=== PATIENT | female | born 1925 | race Caucasian/White ===

== ENCOUNTER 2017-05-07 14:14 | Inpatient (IN) | payer MEDICARE, OTHER ==
[~2017-05-07] VITALS: Ht 160 cm; Wt 76.9 kg
[~2017-05-07 14:14] MED LIST: ASPIRIN ADULT L81 M2 PO; AUGMENTIN 875 M1 TAB PO; CIPRODEX 0.3%-7.5 ML OT; CLARITIN10 MG PO; COREG3.125 MG PO; COZAAR50 M1 PO; CYCLOBENZAPRINE10 MG PO; Cyclobenzaprine10 MG MR; DARVOCET N 1001 TAB PO; DAYPRO600 M1 PO; GLIMEPIRIDE4 M1 PO; GLIPIZIDE ER2.5 MG PO; KLOR-CON M1010 ME1 PO; LASIX40 MG PO; LISINOPRIL2.5 MG PO; MEDROL DOSEPAK4 MG PO; MELOXICAM15 MG PO; METFORMIN500 MG PO; METOPROLOL100 MG PO; Motrin,Rufen800 MG PO; NEURONTIN300 MG PO; NORCO 325 MG-51 TAB PO; NORFLEX100 MG PO; PERCOCET 325 MG1 TA2 PO; PREDNICOT10 MG PO; ROBAXIN750 MG PO; SKELAXIN800 MG PO; TRAMADOL HCL50 MG PO; VICODIN 5/500 505 MG PO; VICODIN 500 MG-1 TAB PO
[2017-05-07 14:19] VITALS: BP 192/93
[2017-05-07 15:11] LABS: BASO % 0.3 % (0.0-1.0); EOS # 0.1 10*3/uL (0.0-0.4); EOS % 1.2 % (1.0-4.0); HEMOGLOBIN 10.2 g/dl (12.0-16.0); LYMPH # 1.3 10*3/uL (1.3-4.4); LYMPH % 16.6 % (27.0-41.0); MEAN CELL VOLUME 99.7 fl (81.0-99.0); MEAN CORPUSCULAR HGB 33.9 pg (27.0-31.0); MEAN PLATELET VOLUME 9.8 fl (9.6-12.3); MONO # 0.8 10*3/uL (0.1-1.0); MONO % 9.9 % (3.0-9.0); NEUT # 5.4 10*3/uL (2.3-7.9); NEUT % 70.3 % (47.0-73.0); PLATELET COUNT AUTOMATED 224 10*3/uL (130-400); RED BLOOD COUNT 3.01 10*6/uL (4.10-5.10); RED CELL DISTRI WIDTH 13.1 % (0-14.5); WHITE BLOOD COUNT 7.6 10*3/uL (4.8-10.8)
[2017-05-07 15:13] VITALS: BP 180/90; BP 191/87
[2017-05-07 15:25] LABS: ALBUMIN 3.1 gm/dl (3.1-4.5); ALKALINE PHOSPHATASE 84 U/L (45-117); BUN 13 mg/dl (7-24); CHLORIDE 103 mmol/L (98-107); CREATININE 0.98 mg/dL (0.55-1.02); POTASSIUM 3.5 mmol/L (3.5-5.1); SGOT/AST 9 IU/L (3-35); SGPT/ALT 9 U/L (12-78); SODIUM 139 mmol/L (136-145); TOTAL PROTEIN 7.7 gm/dL (6.4-8.2)
[2017-05-07 16:13] VITALS: BP 174/83
[2017-05-07 16:45] VITALS: BP 161/80
[2017-05-07] MEDS ORDERED: TRAMADOL HCL50 MG PO (16:55)
[2017-05-07 17:00] VITALS: BP 163/79
[2017-05-07 20:00] VITALS: BP 154/68
[2017-05-08] VITALS: BP 143/66
[2017-05-08 07:31] LABS: BASO % 0.4 % (0.0-1.0); EOS # 0.2 10*3/uL (0.0-0.4); EOS % 2.5 % (1.0-4.0); HEMATOCRIT 27.9 % (37.0-47.0); HEMOGLOBIN 9.2 g/dl (12.0-16.0); LYMPH # 1.5 10*3/uL (1.3-4.4); LYMPH % 20.6 % (27.0-41.0); MEAN CELL VOLUME 100.7 fl (81.0-99.0); MEAN CORPUSCULAR HGB 33.2 pg (27.0-31.0); MEAN PLATELET VOLUME 10.2 fl (9.6-12.3); MONO # 0.8 10*3/uL (0.1-1.0); MONO % 10.7 % (3.0-9.0); NEUT # 4.7 10*3/uL (2.3-7.9); NEUT % 64.3 % (47.0-73.0); PLATELET COUNT AUTOMATED 207 10*3/uL (130-400); RED BLOOD COUNT 2.77 10*6/uL (4.10-5.10); RED CELL DISTRI WIDTH 13.1 % (0-14.5); WHITE BLOOD COUNT 7.3 10*3/uL (4.8-10.8)
[2017-05-08 07:34] LABS: CHLORIDE 102 mmol/L (98-107); POTASSIUM 3.4 mmol/L (3.5-5.1); SODIUM 137 mmol/L (136-145)
[2017-05-08 07:55] LABS: ALBUMIN 2.9 gm/dl (3.1-4.5); ALKALINE PHOSPHATASE 81 U/L (45-117); BUN 14 mg/dl (7-24); CREATININE 0.97 mg/dL (0.55-1.02); PHOSPHOROUS 2.4 mg/dL (2.5-4.9); SGOT/AST 10 IU/L (3-35); SGPT/ALT 9 U/L (12-78); TOTAL PROTEIN 7.2 gm/dL (6.4-8.2)
[2017-05-08 08:00] VITALS: BP 174/80
[2017-05-08 12:00] VITALS: BP 157/83
[2017-05-08 16:00] VITALS: BP 168/90
[2017-05-08 20:00] VITALS: BP 170/90
[2017-05-09] VITALS: BP 135/69
[2017-05-09 06:43] LABS: BILIRUBIN 1+ (NEGATIVE); BLOOD NEGATIVE (NEGATIVE); CLARITY CLOUDY (CLEAR); COLOR YELLOW (YELLOW); GLUCOSE NEGATIVE (NEGATIVE); KETONE 1+ (NEGATIVE); LEUKO ESTERASE 1+ (NEGATIVE); NITRITE NEGATIVE (NEGATIVE); PH 8.5 (5.0-9.0)
[2017-05-09 07:27] LABS: BACTERIA 4+; TRIP PHOS CRYSTALS 3+
[2017-05-09 08:00] VITALS: BP 139/64
[2017-05-09 12:00] VITALS: BP 182/90
[2017-05-09 16:00] VITALS: BP 131/60
[2017-05-09 20:00] VITALS: BP 160/90
[2017-05-09 22:00] VITALS: BP 154/82
[2017-05-10] VITALS: BP 118/48
[2017-05-10 06:21] LABS: BASO % 0.2 % (0.0-1.0); EOS # 0.1 10*3/uL (0.0-0.4); EOS % 0.8 % (1.0-4.0); HEMOGLOBIN 8.9 g/dl (12.0-16.0); LYMPH # 1.9 10*3/uL (1.3-4.4); LYMPH % 16.7 % (27.0-41.0); MEAN CELL VOLUME 100.4 fl (81.0-99.0); MEAN CORPUSCULAR HGB 33.1 pg (27.0-31.0); MEAN PLATELET VOLUME 10.3 fl (9.6-12.3); MONO # 0.9 10*3/uL (0.1-1.0); MONO % 7.5 % (3.0-9.0); NEUT # 8.4 10*3/uL (2.3-7.9); NEUT % 72.4 % (47.0-73.0); PLATELET COUNT AUTOMATED 207 10*3/uL (130-400); RED BLOOD COUNT 2.69 10*6/uL (4.10-5.10); RED CELL DISTRI WIDTH 12.9 % (0-14.5); WHITE BLOOD COUNT 11.6 10*3/uL (4.8-10.8)
[2017-05-10 06:43] LABS: ALBUMIN 2.6 gm/dl (3.1-4.5); POTASSIUM 4.1 mmol/L (3.5-5.1)
[2017-05-10 06:46] LABS: CREATININE 1.15 mg/dL (0.55-1.02); TOTAL PROTEIN 6.6 gm/dL (6.4-8.2)
[2017-05-10 08:00] VITALS: BP 131/75
[2017-05-10 12:00] VITALS: BP 124/52
[2017-05-10 16:00] VITALS: BP 150/66
[2017-05-10 20:00] VITALS: BP 146/66
[2017-05-11] VITALS: BP 155/68
[2017-05-11 06:41] LABS: BUN 17 mg/dl (7-24); CHLORIDE 103 mmol/L (98-107); CREATININE 1.02 mg/dL (0.55-1.02); POTASSIUM 4.1 mmol/L (3.5-5.1); SODIUM 137 mmol/L (136-145)
[2017-05-11 08:00] VITALS: BP 176/90
[2017-05-11 12:00] VITALS: BP 138/60
[2017-05-11 16:00] VITALS: BP 149/72
[2017-05-11 20:00] VITALS: BP 151/67
[2017-05-12] VITALS: BP 145/61
[2017-05-12 04:00] VITALS: BP 154/64
[2017-05-12 07:37] LABS: BASO % 0.2 % (0.0-1.0); EOS # 0.2 10*3/uL (0.0-0.4); EOS % 2.1 % (1.0-4.0); HEMATOCRIT 27.1 % (37.0-47.0); HEMOGLOBIN 8.8 g/dl (12.0-16.0); LYMPH # 1.6 10*3/uL (1.3-4.4); LYMPH % 17.5 % (27.0-41.0); MEAN CELL VOLUME 101.9 fl (81.0-99.0); MEAN CORPUSCULAR HGB 33.1 pg (27.0-31.0); MEAN CORPUSCULAR HGB CONC 32.5 g/dl (33.0-37.0); MEAN PLATELET VOLUME 10.3 fl (9.6-12.3); MONO # 0.7 10*3/uL (0.1-1.0); MONO % 7.8 % (3.0-9.0); NEUT # 6.2 10*3/uL (2.3-7.9); NEUT % 69.2 % (47.0-73.0); PLATELET COUNT AUTOMATED 204 10*3/uL (130-400); RED BLOOD COUNT 2.66 10*6/uL (4.10-5.10); RED CELL DISTRI WIDTH 13.1 % (0-14.5)
[2017-05-12 08:00] VITALS: BP 178/80
[2017-05-12 08:12] LABS: BUN 11 mg/dl (7-24); CHLORIDE 105 mmol/L (98-107); POTASSIUM 3.9 mmol/L (3.5-5.1); SODIUM 138 mmol/L (136-145)
[2017-05-12 08:14] LABS: CREATININE 0.88 mg/dL (0.55-1.02)
[2017-05-12 11:57] VITALS: BP 149/68
[2017-05-12] MEDS ORDERED: VITAMIN D-32000 UNI1 PO (12:50)
[2017-05-12] MEDS ORDERED: FEOSOL325 MG PO (12:50)
[2017-05-12] MEDS ORDERED: B12,B-12,B 12500 MC1 PO (12:50)
[2017-05-12 16:00] VITALS: BP 178/67
== END 2017-05-12 16:18 | disposition other institution (70) | DRG 689 ==
LOC: ED 14:14 → EDHOLD 16:24 → 4E 16:24
PROVIDERS: Family Medicine; Internal Medicine; Physician Assistant; ADMIT Internal Medicine
DX: N30.00 Acute cystitis without hematuria (principal); J18.9 Pneumonia, unspecified organism; N17.9 Acute kidney failure, unspecified; I11.0 Hypertensive heart disease with heart failure; E11.65 Type 2 diabetes mellitus with hyperglycemia; D64.9 Anemia, unspecified; I50.9 Heart failure, unspecified; E44.1 Mild protein-calorie malnutrition; Z66 Do not resuscitate; B95.2 Enterococcus as the cause of diseases classified elsewhere; E55.9 Vitamin D deficiency, unspecified; H91.90 Unspecified hearing loss, unspecified ear; E53.8 Deficiency of other specified B group vitamins; B34.9 Viral infection, unspecified; Z51.5 Encounter for palliative care; R26.2 Difficulty in walking, not elsewhere classified; Z79.899 Other long term (current) drug therapy; Z79.82 Long term (current) use of aspirin; Z90.710 Acquired absence of both cervix and uterus; Z82.49 Family history of ischemic heart disease and other diseases of the circulatory system; Z80.9 Family history of malignant neoplasm, unspecified; Z85.3 Personal history of malignant neoplasm of breast; Z91.14 Patient's other noncompliance with medication regimen; Z79.84 Long term (current) use of oral hypoglycemic drugs; Z68.30 Body mass index [BMI] 30.0-30.9, adult

== ENCOUNTER 2017-05-21 10:23 | Inpatient (IN) | payer MEDICARE, OTHER ==
[2017-05-21] VITALS (7 sets, daily range): BP systolic 122–174; BP diastolic 44–90
[~2017-05-21] VITALS: Ht 160 cm; Wt 79.0 kg
[~2017-05-21 10:23] MED LIST changes: +B12,B-12,B 12500 MC1 PO; +FEOSOL325 MG PO; +VITAMIN D-32000 UNI1 PO
[2017-05-21 11:20] LABS: INTERNATIONAL NORM RATIO 1.1 (2.0-3.5)
[2017-05-21 11:40] LABS: BASO % 0.4 % (0.0-1.0); EOS # 0.1 10*3/uL (0.0-0.4); EOS % 1.6 % (1.0-4.0); HEMATOCRIT 33.1 % (37.0-47.0); HEMOGLOBIN 10.9 g/dl (12.0-16.0); LYMPH # 1.3 10*3/uL (1.3-4.4); LYMPH % 17.3 % (27.0-41.0); MEAN CELL VOLUME 95.9 fl (81.0-99.0); MEAN CORPUSCULAR HGB 31.6 pg (27.0-31.0); MEAN CORPUSCULAR HGB CONC 32.9 g/dl (33.0-37.0); MEAN PLATELET VOLUME 10.7 fl (9.6-12.3); MONO # 0.7 10*3/uL (0.1-1.0); MONO % 9.6 % (3.0-9.0); NEUT # 5.3 10*3/uL (2.3-7.9); NEUT % 70.7 % (47.0-73.0); PLATELET COUNT AUTOMATED 254 10*3/uL (130-400); RED BLOOD COUNT 3.45 10*6/uL (4.10-5.10); RED CELL DISTRI WIDTH 12.9 % (0-14.5); WHITE BLOOD COUNT 7.5 10*3/uL (4.8-10.8)
[2017-05-21 11:58] LABS: ALBUMIN 3.2 gm/dl (3.1-4.5); ALKALINE PHOSPHATASE 87 U/L (45-117); BUN 20 mg/dl (7-24); CHLORIDE 99 mmol/L (98-107); CREATININE 1.36 mg/dL (0.55-1.02); SGOT/AST 15 IU/L (3-35); SGPT/ALT 15 U/L (12-78); SODIUM 135 mmol/L (136-145); TOTAL PROTEIN 7.5 gm/dL (6.4-8.2)
[2017-05-21 12:00] LABS: TROPONIN I < 0.015 ng/ml (<0.045)
[2017-05-21 13:37] LABS: BILIRUBIN NEGATIVE (NEGATIVE); BLOOD NEGATIVE (NEGATIVE); CLARITY SL CLOUDY (CLEAR); COLOR YELLOW (YELLOW); GLUCOSE NEGATIVE (NEGATIVE); KETONE NEGATIVE (NEGATIVE); LEUKO ESTERASE NEGATIVE (NEGATIVE); NITRITE NEGATIVE (NEGATIVE); UROBILINOGEN 0.2 E.U./dl (0.2-1.0)
--- NOTE | 2017-05-21 13:45 | NUR ---
A 89, admitted to , under the services of HUEY Lam DO with a diagnosis of SOB, NAUSEA & VOMITING. Chief complaint is SOB. Patient arrived via ambulance from ER. Initial assessment completed. Vital signs taken and recorded. HUEY LAM DO notified of admission to the unit. Orders received. See assessment for past medical history, medications and allergies. Patient and/or family oriented to unit. [facility] visitation policy reviewed. Clothing/patient valuable form completed. NICHOLE LUDWIG
--- NOTE | 2017-05-21 13:45 | NUR ---
A 89, admitted to , under the services of HUEY Lam DO with a diagnosis of SOB, NAUSEA & VOMITING. Chief complaint is SOB, NAUSEA. Patient arrived via ambulance from ER. Monitor applied. Initial assessment completed. Vital signs taken and recorded. HUEY LAM DO notified of admission to the unit. Orders received. See assessment for past medical history, medications and allergies. Patient and/or family oriented to unit. [facility] visitation policy reviewed. Clothing/patient valuable form completed. NICHOLE LUDWIG
[2017-05-21 13:57] LABS: EPITHELIAL CELLS 20-30
[2017-05-21 13:59] LABS: BACTERIA TRACE; YEAST TRACE
[2017-05-21 14:00] LABS: RBC 0-2 rbc/hpf (0-2); WBC 0-2 wbc/hpf (0-5)
--- NOTE | 2017-05-21 14:29 | NUR ---
DR HUTCHINS'S OFFICE NOTIFIED OF NEW CONSULT.
--- NOTE | 2017-05-21 14:29 | NUR ---
PT DOWN FOR CT ABD/PELVIS AT THIS TIME.
--- NOTE | 2017-05-21 14:40 | NUR ---
PT RETURNED FROM CT AT THIS TIME. NO DISTRESS NOTED.
--- NOTE | 2017-05-21 14:50 | NUR ---
MED REC UPDATED BY LIST PROVIDED BY [facility].
--- NOTE | 2017-05-21 14:52 | NUR ---
CALLED DR SMYTH TO NOTIFY OF NEW CONSULT. ANSWERING SERVICE STATES HE IS [place] OF TOWN AND THERE IS NO COVERAGE FOR HIM. UPDATED DR BURLESON. ALSO NOTIFIED OF UPDATED MED REC.
--- NOTE | 2017-05-21 15:52 | NUR ---
Nursing Screen received for Occupational Therapy and chart review completed. Patient may benefit from Occupational Therapy referral when medically stable to participate to facilatate discharge. Thank you for this consideration. Nena Alcantar OTR/L
--- NOTE | 2017-05-21 17:34 | NUR ---
PT TEARFUL AFTER FAILED BLOOD DRAW. FAMILY AT BEDSIDE. SITTING UP, RESP EASY. IV FLUIDS 0.9 NS RUNNING @ 80/HR INTO RIGHT HAND. NO C/O AT THIS TIME. CALL LIGHT IN REACH.
--- NOTE | 2017-05-21 20:00 | NUR ---
ASSUMED CARE OF PATIENT. ASSESSMENT COMPLETE. DENIES FURTHER NEEDS AT THIS TIME. CALL LIGHT IN REACH. WILL CONTINUE TO MONITOR
--- NOTE | 2017-05-21 20:54 | NUR ---
CALLED AND SPOKE TO DR BUTLER REGQARDING PT FLUIDS. NS@80 ML/HR RUNNING. PT HAS HS CHF, C/O SOB AT REST, FAINT CRACKLES TO LUNGS. ORDER ECEIVED TO STOP PT IVF.
[2017-05-22] VITALS: BP 133/78
--- NOTE | 2017-05-22 02:19 | NUR ---
SLEEPING. RESP EASY AND NONLABORED ON ROOM AIR. NO DISTRESS NOTED. CALL LIGHT IN REACH. WILL CONTINUE TO MONITOR.
--- NOTE | 2017-05-22 06:28 | NUR ---
PT REFUSING AM LAB WORK
[2017-05-22 07:19] LABS: BASO % 0.6 % (0.0-1.0); EOS # 0.2 10*3/uL (0.0-0.4); EOS % 2.4 % (1.0-4.0); HEMATOCRIT 31.8 % (37.0-47.0); HEMOGLOBIN 10.3 g/dl (12.0-16.0); LYMPH # 1.4 10*3/uL (1.3-4.4); LYMPH % 19.8 % (27.0-41.0); MEAN CELL VOLUME 97.5 fl (81.0-99.0); MEAN CORPUSCULAR HGB 31.6 pg (27.0-31.0); MEAN CORPUSCULAR HGB CONC 32.4 g/dl (33.0-37.0); MEAN PLATELET VOLUME 10.8 fl (9.6-12.3); MONO % 13.2 % (3.0-9.0); NEUT # 4.6 10*3/uL (2.3-7.9); NEUT % 63.4 % (47.0-73.0); PLATELET COUNT AUTOMATED 189 10*3/uL (130-400); RED BLOOD COUNT 3.26 10*6/uL (4.10-5.10); WHITE BLOOD COUNT 7.2 10*3/uL (4.8-10.8)
[2017-05-22 07:31] LABS: CREATININE 1.42 mg/dL (0.55-1.02); PHOSPHOROUS 3.7 mg/dL (2.5-4.9); POTASSIUM 4.1 mmol/L (3.5-5.1)
--- NOTE | 2017-05-22 07:59 | NUR ---
SOCIAL MEDIA ASSISTANT VS. SLEEPING SOUNDLY. DC CREW ATTENDANT/SW WILL CHECK WITH FAMILY ABOUT DC PLAN.
[2017-05-22 08:00] VITALS: BP 100/50
--- NOTE | 2017-05-22 09:45 | NUR ---
ECHO BEING PERFORMED AT THIS TIME.
[2017-05-22 10:13] LABS: BILIRUBIN NEGATIVE (NEGATIVE); BLOOD NEGATIVE (NEGATIVE); CLARITY CLOUDY (CLEAR); COLOR YELLOW (YELLOW); GLUCOSE NEGATIVE (NEGATIVE); KETONE NEGATIVE (NEGATIVE); LEUKO ESTERASE NEGATIVE (NEGATIVE); NITRITE NEGATIVE (NEGATIVE); PH 5.5 (5.0-9.0); UROBILINOGEN 0.2 E.U./dl (0.2-1.0)
[2017-05-22 10:37] LABS: BACTERIA 1+; EPITHELIAL CELLS TNTC; RBC 0-2 rbc/hpf (0-2)
[2017-05-22 12:00] VITALS: BP 158/70
--- NOTE | 2017-05-22 14:00 | NUR ---
PT RESTING IN BED, FAMILY AT BEDSIDE. PT DENIES ANY COMPLAINTS. PT TOLERATED HER LUNCH WELL, DENIES ANY NAUSEA/VOMITING. CALL LIGHT WITHIN REACH.
--- NOTE | 2017-05-22 15:00 | NUR ---
SW LEFT VM FOR DTR LEIF ABOUT RETUNING TO [facility].
--- NOTE | 2017-05-22 15:00 | NUR ---
ALEJANDRINA SPOKE WITH PT WHO WANTS TO RETURN HOME. ALEJANDRINA WILL CALL FAMILY TO CHECK.
[2017-05-22 16:00] VITALS: BP 136/37
[2017-05-22 20:00] VITALS: BP 135/42
--- NOTE | 2017-05-22 20:24 | NUR ---
ASSUMED CARE OF PT. PT IN BED, EYES CLOSED WITH LIGHTS OFF. EASILY AROUSED. IV FLUSHED WITH NO PROBLEMS. PT VOICES NO CONCERNS AT THIS TIME. CALL LIGHT WITHIN REACH. SEE SHIFT ASSESSMENT.
[2017-05-23] VITALS: BP 154/68
--- NOTE | 2017-05-23 00:02 | NUR ---
PT IN BED, EYES CLOSED. LIGHTS OFF. RESPIRATIONS EASY AND UNLABORED. PT IN IN APPARENT DISTRESS. VITALS STABLE. CALL LIGHT WITHIN REACH.
--- NOTE | 2017-05-23 05:02 | NUR ---
24HR CHART CHECK COMPLETED.
--- NOTE | 2017-05-23 06:40 | NUR ---
PT UP TO RESTROOM AND BACK TO BED AT THIS TIME WITH NO INCIDENTS. PT VOICES NO CONCERNS/COMPLAINTS AT THIS TIME. CALL LIGHT IN REACH. TOLERATED MEDICATIONS WELL. BED ALARM ON.
[2017-05-23 08:00] VITALS: BP 160/84
--- NOTE | 2017-05-23 08:44 | NUR ---
RESTING QUIETLY NO C/O NO DISTRESS NOTED. STATES SHE IS FEELING BETTER. SEE SHIFT ASSESSMENT.
[2017-05-23 12:00] VITALS: BP 140/57
--- NOTE | 2017-05-23 14:02 | NUR ---
DISCHARGED TO HOME IN CARE OF FAMILY VIA WHEELCHAIR.
== END 2017-05-23 14:02 | disposition home or self-care (01) | DRG 682 ==
LOC: ED 10:23 → EDHOLD 12:32 → 4E 12:32
PROVIDERS: Emergency Medicine; Physician Assistant; Student in an Organized Health Care Education/Training Program; ADMIT Emergency Medicine
DX: N17.0 Acute kidney failure with tubular necrosis (principal); G93.41 Metabolic encephalopathy; E11.8 Type 2 diabetes mellitus with unspecified complications; E87.1 Hypo-osmolality and hyponatremia; I27.20 Pulmonary hypertension, unspecified; I50.32 Chronic diastolic (congestive) heart failure; Z66 Do not resuscitate; I11.0 Hypertensive heart disease with heart failure; D64.9 Anemia, unspecified; E86.0 Dehydration; K80.20 Calculus of gallbladder without cholecystitis without obstruction; M54.9 Dorsalgia, unspecified; K82.8 Other specified diseases of gallbladder; Z51.5 Encounter for palliative care; G89.29 Other chronic pain; I35.0 Nonrheumatic aortic (valve) stenosis; D72.810 Lymphocytopenia; R00.8 Other abnormalities of heart beat; Z90.710 Acquired absence of both cervix and uterus; Z82.49 Family history of ischemic heart disease and other diseases of the circulatory system; Z80.6 Family history of leukemia; Z85.3 Personal history of malignant neoplasm of breast; Z79.899 Other long term (current) drug therapy; Z79.84 Long term (current) use of oral hypoglycemic drugs; Z87.440 Personal history of urinary (tract) infections

== ENCOUNTER 2017-06-08 18:02 | Inpatient (IN) | payer MEDICARE, OTHER ==
[~2017-06-08] VITALS: Ht 160 cm; Wt 79.4 kg
--- NOTE | ~2017-06-08 | PR ---
[place], [place] PROGRESS NOTE NAME: YULISSA CASTRO [facility] #: [id number] UNIT #: [id number] ROOM: 4008 DOCTOR: DEIDRA SOLIS MD BIRTHDATE: [birth year] DOS: 06/10/2017 SUBJECTIVE: She is an 89-year-old female with a history of severe aortic stenosis, history of hypertension, admitted with syncope and a right humeral neck fracture. She is being treated conservatively for right humeral neck fracture. She was evaluated yesterday and her lisinopril was discontinued, which could have contributed to her symptoms. On last echocardiogram done in 05/2017 showed severe aortic stenosis with valve area of 0.8 square centimeters and a mean gradient of 42 and a peak gradient of 74. She denies any new symptoms today. No chest pain, no palpitations and no more episodes of syncope or presyncope. After talking to her, she does get fatigue and dyspnea on exertion before coming to the hospital. REVIEW OF SYSTEMS: As described in the history and as described above and she denies any other new symptoms. No nausea, vomiting, no abdominal pain, no leg edema, no orthopnea, no PND. Her medications were reviewed and current medications include gabapentin 300 mg q. 8 hours, vitamin D, ferrous sulfate 325 mg daily, Lovenox 40 for DVT prophylaxis, Coreg 3.125 mg q. 12 hours, Lasix 40 mg daily, temazepam 50 mg daily as needed, Zofran 4 mg daily. PHYSICAL EXAMINATION: VITAL SIGNS: Temperature 98.1, respirations 18, pulse 99, blood pressure 128/66, sats 97%. GENERAL: She is an elderly female resting comfortably, sitting without any distress. She is alert and oriented x 3. HEENT: Normal. JVD normal. LUNGS: Clear. HEART: S1 normal, S2 is soft. She has ejection systolic crescendo decrescendo murmur grade 4/6 over the right upper sternal border with radiation to bilateral carotids. She has S4, no S3. ABDOMEN: Soft. Bowel sounds normal. No hepatosplenomegaly. EXTREMITIES: Pulses 2+. No edema, cyanosis or clubbing. Her right upper limb is placed in sling. IMAGING: Her telemetry is sinus rhythm. No pauses or arrhythmias. LABORATORY DATA: WBC 8.8, hemoglobin 11.2, hematocrit 34.3, platelets 158. Today's chemistry: Glucose 137, potassium 4.9, chloride 104, carbon dioxide 24, BUN 18, creatinine 0.8. Hemoglobin 6.6, calcium 8.4. LFTs are normal and her troponin is normal. Normal chest x-ray without any CHF. ASSESSMENT: 1. Symptomatic severe aortic stenosis with syncope, I think that was precipitated by lisinopril. 2. Hypertension, well controlled. 3. Mild anemia. [place], [place] [id number] UN[facility] #: [id number] ROOM: 4008 DOCTOR: DEIDRA SOLIS MD BIRTHDATE: [birth year] 4. Acute kidney injury/azotemia, resolved with IV fluids. RECOMMENDATIONS: Avoid vasodilators including BRE inhibitors, continue Coreg at this time. Make sure she is well hydrated. The patient was discussed about the transcatheter aortic valve replacement because she has a symptomatic aortic stenosis, which she is going to think about and will follow up in the office. We will sign off at this time and she was advised to keep her followup appointment on 06/30/2017. Deidra Solis MD CM:YG [id number] DEIDRA SOLIS MD 06/10/17 1143 interface
--- NOTE | ~2017-06-08 | EKG ---
[place], [place] ELECTROCARDIOGRAM REPORT NAME: YULISSA CASTRO UNIT #: [id number] ROOM: 4008 DOCTOR: DEIDRA SOLIS MD BIRTHDATE: [birth year] DOS: 06/10/2017 IMPRESSION: Normal sinus rhythm, nonspecific ST-T changes, abnormal ECG. Deidra Solis MD CM:EKGRPT:ELECTROCARDIOGRAM REPORT [id number] DEIDRA SOLIS MD
[2017-06-08 18:19] VITALS: BP 160/80
[2017-06-08 21:06] VITALS: BP 152/58
[2017-06-08 21:31] LABS: BASO % 0.2 % (0.0-1.0); EOS # 0.1 10*3/uL (0.0-0.4); EOS % 0.8 % (1.0-4.0); HEMATOCRIT 34.8 % (37.0-47.0); HEMOGLOBIN 11.6 g/dl (12.0-16.0); LYMPH # 1.9 10*3/uL (1.3-4.4); LYMPH % 15.2 % (27.0-41.0); MEAN CELL VOLUME 92.6 fl (81.0-99.0); MEAN CORPUSCULAR HGB 30.9 pg (27.0-31.0); MEAN CORPUSCULAR HGB CONC 33.3 g/dl (33.0-37.0); MEAN PLATELET VOLUME 10.7 fl (9.6-12.3); MONO # 0.7 10*3/uL (0.1-1.0); MONO % 5.8 % (3.0-9.0); NEUT # 9.6 10*3/uL (2.3-7.9); NEUT % 77.7 % (47.0-73.0); PLATELET COUNT AUTOMATED 164 10*3/uL (130-400); RED BLOOD COUNT 3.76 10*6/uL (4.10-5.10); RED CELL DISTRI WIDTH 13.1 % (0-14.5); WHITE BLOOD COUNT 12.3 10*3/uL (4.8-10.8)
[2017-06-08 21:49] LABS: INTERNATIONAL NORM RATIO 1.1 (2.0-3.5)
[2017-06-08 21:54] LABS: ALBUMIN 3.5 gm/dl (3.1-4.5); ALKALINE PHOSPHATASE 105 U/L (45-117); BUN 19 mg/dl (7-24); CHLORIDE 103 mmol/L (98-107); CREATININE 0.79 mg/dL (0.55-1.02); POTASSIUM 4.8 mmol/L (3.5-5.1); SGOT/AST 13 IU/L (3-35); SGPT/ALT 11 U/L (12-78); SODIUM 135 mmol/L (136-145); TOTAL PROTEIN 7.2 gm/dL (6.4-8.2)
[2017-06-09 00:45] VITALS: BP 169/87
[2017-06-09] MEDS ORDERED: LASIX40 MG PO (01:14)
[2017-06-09] MEDS ORDERED: MELOXICAM7.5 MG PO (01:15)
[2017-06-09 04:00] VITALS: BP 172/84
[2017-06-09 04:37] LABS: BASO % 0.2 % (0.0-1.0); EOS # 0.2 10*3/uL (0.0-0.4); EOS % 1.8 % (1.0-4.0); HEMATOCRIT 34.3 % (37.0-47.0); HEMOGLOBIN 11.2 g/dl (12.0-16.0); LYMPH # 2.3 10*3/uL (1.3-4.4); LYMPH % 25.8 % (27.0-41.0); MEAN CELL VOLUME 93.2 fl (81.0-99.0); MEAN CORPUSCULAR HGB 30.4 pg (27.0-31.0); MEAN CORPUSCULAR HGB CONC 32.7 g/dl (33.0-37.0); MEAN PLATELET VOLUME 10.4 fl (9.6-12.3); MONO # 0.8 10*3/uL (0.1-1.0); MONO % 8.8 % (3.0-9.0); NEUT # 5.6 10*3/uL (2.3-7.9); NEUT % 63.1 % (47.0-73.0); PLATELET COUNT AUTOMATED 158 10*3/uL (130-400); RED BLOOD COUNT 3.68 10*6/uL (4.10-5.10); RED CELL DISTRI WIDTH 13.1 % (0-14.5); WHITE BLOOD COUNT 8.8 10*3/uL (4.8-10.8)
[2017-06-09 04:56] LABS: ALBUMIN 3.3 gm/dl (3.1-4.5); ALKALINE PHOSPHATASE 99 U/L (45-117); BUN 18 mg/dl (7-24); CHLORIDE 104 mmol/L (98-107); CHOLESTEROL 170 mg/dL (<200); HDL CHOLESTEROL 46 mg/dl (40-60); LDL CHOLESTEROL 94 mg/dL (9-159); PHOSPHOROUS 2.9 mg/dL (2.5-4.9); POTASSIUM 4.9 mmol/L (3.5-5.1); SGOT/AST 11 IU/L (3-35); SGPT/ALT 13 U/L (12-78); SODIUM 137 mmol/L (136-145); TOTAL PROTEIN 6.9 gm/dL (6.4-8.2); TRIGLYCERIDES 148 mg/dl (<150); VLDL CHOLESTEROL 30 mg/dL (6-40)
[2017-06-09 06:54] LABS: VITAMIN D, 25-HYDROXY 16.5 ng/mL (30-100)
[2017-06-09 08:00] VITALS: BP 157/79
[2017-06-09 08:54] LABS: BILIRUBIN NEGATIVE (NEGATIVE); BLOOD NEGATIVE (NEGATIVE); CLARITY SL CLOUDY (CLEAR); COLOR YELLOW (YELLOW); GLUCOSE NEGATIVE (NEGATIVE); KETONE TRACE (NEGATIVE); LEUKO ESTERASE NEGATIVE (NEGATIVE); NITRITE NEGATIVE (NEGATIVE); PH 5.5 (5.0-9.0); SPECIFIC GRAVITY 1.015 (1.005-1.030); UROBILINOGEN 0.2 E.U./dl (0.2-1.0)
[2017-06-09 09:04] LABS: BACTERIA TRACE
[2017-06-09 12:00] VITALS: BP 141/66
[2017-06-09 16:00] VITALS: BP 146/78
[2017-06-09 20:00] VITALS: BP 137/76
[2017-06-10] VITALS: BP 150/69
[2017-06-10 08:00] VITALS: BP 128/66
[2017-06-10 12:00] VITALS: BP 138/60
[2017-06-10 16:00] VITALS: BP 150/60
[2017-06-10 20:00] VITALS: BP 142/63; BP 150/60
[2017-06-11] VITALS: BP 153/81
[2017-06-11 08:00] VITALS: BP 143/63
[2017-06-11] MEDS ORDERED: ZOFRAN4 MG PO (10:58)
[2017-06-11] MEDS ORDERED: COREG6.25 MG PO (10:58)
[2017-06-11] MEDS ORDERED: NORCO 5-325 TA1 EACH PO (10:58)
== END 2017-06-11 11:48 | disposition home or self-care (01) | DRG 563 ==
LOC: ED 18:02 → EDHOLD 20:58 → 4NE 20:58
PROVIDERS: Hospitalist; Physician Assistant
DX: S42.294A Other nondisplaced fracture of upper end of right humerus, initial encounter for closed fracture (principal); N17.9 Acute kidney failure, unspecified; E11.65 Type 2 diabetes mellitus with hyperglycemia; I50.32 Chronic diastolic (congestive) heart failure; E87.1 Hypo-osmolality and hyponatremia; I11.0 Hypertensive heart disease with heart failure; D72.829 Elevated white blood cell count, unspecified; D64.9 Anemia, unspecified; I35.0 Nonrheumatic aortic (valve) stenosis; E55.9 Vitamin D deficiency, unspecified; W18.39XA Other fall on same level, initial encounter; Y93.01 Activity, walking, marching and hiking; Z79.899 Other long term (current) drug therapy; Z79.84 Long term (current) use of oral hypoglycemic drugs; Z90.710 Acquired absence of both cervix and uterus; Z82.49 Family history of ischemic heart disease and other diseases of the circulatory system; Z85.3 Personal history of malignant neoplasm of breast; Z80.6 Family history of leukemia; Y92.098 Other place in other non-institutional residence as the place of occurrence of the external cause; Y99.8 Other external cause status

== ENCOUNTER 2017-06-25 23:48 | Inpatient (IN) | payer MEDICARE, OTHER ==
[~2017-06-25] VITALS: Ht 160 cm; Wt 76.8 kg
[~2017-06-25 23:48] MED LIST changes: +COREG6.25 MG PO; +MELOXICAM7.5 MG PO; +NORCO 5-325 TA1 EACH PO; +ZOFRAN4 MG PO
[2017-06-25 23:54] VITALS: BP 165/87
[2017-06-26 00:31] LABS: BASO % 0.3 % (0.0-1.0); EOS # 0.2 10*3/uL (0.0-0.4); EOS % 1.8 % (1.0-4.0); HEMATOCRIT 30.4 % (37.0-47.0); HEMOGLOBIN 9.9 g/dl (12.0-16.0); LYMPH # 2.1 10*3/uL (1.3-4.4); LYMPH % 17.3 % (27.0-41.0); MEAN CELL VOLUME 91.3 fl (81.0-99.0); MEAN CORPUSCULAR HGB 29.7 pg (27.0-31.0); MEAN CORPUSCULAR HGB CONC 32.6 g/dl (33.0-37.0); MONO # 0.8 10*3/uL (0.1-1.0); MONO % 6.6 % (3.0-9.0); NEUT # 8.8 10*3/uL (2.3-7.9); NEUT % 73.7 % (47.0-73.0); PLATELET COUNT AUTOMATED 293 10*3/uL (130-400); RED BLOOD COUNT 3.33 10*6/uL (4.10-5.10); RED CELL DISTRI WIDTH 13.6 % (0-14.5); WHITE BLOOD COUNT 11.9 10*3/uL (4.8-10.8)
[2017-06-26 00:40] LABS: INTERNATIONAL NORM RATIO 1.1 (2.0-3.5)
[2017-06-26 00:51] LABS: ALBUMIN 3.2 gm/dl (3.1-4.5); ALKALINE PHOSPHATASE 98 U/L (45-117); BUN 12 mg/dl (7-24); CHLORIDE 102 mmol/L (98-107); CREATININE 0.78 mg/dL (0.55-1.02); LIPASE 124 U/L (73-393); POTASSIUM 4.3 mmol/L (3.5-5.1); SGOT/AST 10 IU/L (3-35); SGPT/ALT 9 U/L (12-78); SODIUM 137 mmol/L (136-145)
[2017-06-26 00:52] LABS: TROPONIN I 0.026 ng/ml (<0.045)
[2017-06-26 00:53] VITALS: BP 162/81
[2017-06-26 02:10] VITALS: BP 166/82
[2017-06-26] MEDS ORDERED: TYLENOL EXTRA500 MG PO (02:15)
[2017-06-26 06:43] LABS: BASO % 0.3 % (0.0-1.0); EOS # 0.1 10*3/uL (0.0-0.4); EOS % 1.4 % (1.0-4.0); HEMOGLOBIN 10.1 g/dl (12.0-16.0); LYMPH % 20.6 % (27.0-41.0); MEAN CORPUSCULAR HGB CONC 32.6 g/dl (33.0-37.0); MEAN PLATELET VOLUME 10.2 fl (9.6-12.3); MONO # 0.9 10*3/uL (0.1-1.0); MONO % 8.9 % (3.0-9.0); NEUT # 6.6 10*3/uL (2.3-7.9); NEUT % 68.4 % (47.0-73.0); PLATELET COUNT AUTOMATED 293 10*3/uL (130-400); RED BLOOD COUNT 3.37 10*6/uL (4.10-5.10); RED CELL DISTRI WIDTH 13.5 % (0-14.5); WHITE BLOOD COUNT 9.7 10*3/uL (4.8-10.8)
[2017-06-26 07:14] LABS: BUN 12 mg/dl (7-24); CHLORIDE 102 mmol/L (98-107); PHOSPHOROUS 3.2 mg/dL (2.5-4.9); POTASSIUM 4.3 mmol/L (3.5-5.1); SODIUM 135 mmol/L (136-145)
[2017-06-26 07:23] VITALS: BP 183/86
[2017-06-26 12:00] VITALS: BP 166/78
[2017-06-26 16:00] VITALS: BP 130/74
[2017-06-26 20:00] VITALS: BP 147/69
[2017-06-27] VITALS: BP 138/66
[2017-06-27 08:00] VITALS: BP 187/88
[2017-06-27 08:05] LABS: POTASSIUM 3.8 mmol/L (3.5-5.1)
[2017-06-27 08:12] LABS: CREATININE 1.07 mg/dL (0.55-1.02); TOTAL PROTEIN 6.6 gm/dL (6.4-8.2)
[2017-06-27 12:02] VITALS: BP 137/60
[2017-06-27 16:07] VITALS: BP 146/74
[2017-06-27 20:00] VITALS: BP 151/77
[2017-06-27 23:38] LABS: BILIRUBIN NEGATIVE (NEGATIVE); BLOOD NEGATIVE (NEGATIVE); CLARITY CLEAR (CLEAR); COLOR YELLOW (YELLOW); GLUCOSE NEGATIVE (NEGATIVE); KETONE NEGATIVE (NEGATIVE); LEUKO ESTERASE NEGATIVE (NEGATIVE); NITRITE NEGATIVE (NEGATIVE); SPECIFIC GRAVITY <= 1.005 (1.005-1.030); UROBILINOGEN 0.2 E.U./dl (0.2-1.0)
[2017-06-27 23:45] LABS: BACTERIA 2+; RBC 0-2 rbc/hpf (0-2); WBC 0-2 wbc/hpf (0-5)
[2017-06-28] VITALS: BP 159/75
[2017-06-28 06:00] LABS: BASO % 0.5 % (0.0-1.0); EOS # 0.7 10*3/uL (0.0-0.4); EOS % 8.1 % (1.0-4.0); HEMATOCRIT 29.8 % (37.0-47.0); HEMOGLOBIN 9.5 g/dl (12.0-16.0); LYMPH # 1.7 10*3/uL (1.3-4.4); LYMPH % 20.6 % (27.0-41.0); MEAN CELL VOLUME 91.7 fl (81.0-99.0); MEAN CORPUSCULAR HGB 29.2 pg (27.0-31.0); MEAN CORPUSCULAR HGB CONC 31.9 g/dl (33.0-37.0); MEAN PLATELET VOLUME 10.1 fl (9.6-12.3); MONO # 0.9 10*3/uL (0.1-1.0); NEUT % 59.3 % (47.0-73.0); PLATELET COUNT AUTOMATED 219 10*3/uL (130-400); RED BLOOD COUNT 3.25 10*6/uL (4.10-5.10); RED CELL DISTRI WIDTH 13.6 % (0-14.5); WHITE BLOOD COUNT 8.4 10*3/uL (4.8-10.8)
[2017-06-28 06:23] LABS: CREATININE 1.3 mg/dL (0.55-1.02); POTASSIUM 3.6 mmol/L (3.5-5.1)
[2017-06-28 08:00] VITALS: BP 187/80
[2017-06-28 12:00] VITALS: BP 180/73
[2017-06-28 14:00] VITALS: BP 180/73
[2017-06-28] MEDS ORDERED: DOXYCYCLINE100 M3 PO (14:06)
[2017-06-28 16:00] VITALS: BP 145/67
== END 2017-06-28 16:27 | disposition home or self-care (01) | DRG 871 ==
LOC: ED 23:48 → EDHOLD 06-26 01:21 → 5E 06-26 01:28
PROVIDERS: Hospitalist; Internal Medicine; Physician Assistant
DX: A41.9 Sepsis, unspecified organism (principal); J18.1 Lobar pneumonia, unspecified organism; I50.33 Acute on chronic diastolic (congestive) heart failure; E11.65 Type 2 diabetes mellitus with hyperglycemia; I11.0 Hypertensive heart disease with heart failure; D64.9 Anemia, unspecified; Z51.5 Encounter for palliative care; Z66 Do not resuscitate; E53.8 Deficiency of other specified B group vitamins; I70.201 Unspecified atherosclerosis of native arteries of extremities, right leg; I35.0 Nonrheumatic aortic (valve) stenosis; E55.9 Vitamin D deficiency, unspecified; Z85.3 Personal history of malignant neoplasm of breast; Z87.81 Personal history of (healed) traumatic fracture; Z90.710 Acquired absence of both cervix and uterus; Z79.84 Long term (current) use of oral hypoglycemic drugs; Z79.899 Other long term (current) drug therapy; Z82.49 Family history of ischemic heart disease and other diseases of the circulatory system; Z80.6 Family history of leukemia

== ENCOUNTER → 2017-09-18 | Outpatient (CLI) | payer MEDICARE, OTHER ==
[~2017-09-18] MED LIST changes: +DOXYCYCLINE100 M3 PO; +TYLENOL EXTRA500 MG PO
== END | disposition home or self-care (01) ==
LOC: CT 10:50
DX: K80.20 Calculus of gallbladder without cholecystitis without obstruction (principal); N26.1 Atrophy of kidney (terminal); K57.30 Diverticulosis of large intestine without perforation or abscess without bleeding; I51.7 Cardiomegaly